=== PATIENT | male | born 1945 | race Caucasian/White ===

== ENCOUNTER 2016-07-17 11:14 | Day surgery (SDC) | payer OTHER, BC ==
[2016-07-13 16:59] VITALS: BMI 26.6
[~2016-07-17 11:14] MED LIST: ceFAZolin SODIUM 1 GM VIAL IVPB ONE
--- NOTE | 2016-07-17 12:27 | HP ---
History & Physical Update - History History: No Change - Physical Physical: No Change - Assessment Assessment: No Change - Plan Plan: No Change
[2016-07-17] MEDS ORDERED: ACETAMINOPHEN 1000 MG/100 ML VIAL (NON FORMULARY) IVPB ONE (12:35)
[2016-07-17] MEDS ORDERED: DEXTROSE 5%-0.45% SALINE 1,000 ML IV SCH (12:45)
[2016-07-17] MEDS ORDERED: LIDOCAINE HCL/PF 2% SDV 5ML VIAL ONE (13:14)
[2016-07-17] MEDS ORDERED: MIDAZOLAM HCL 2 MG/2 ML SINGLE DOSE VIAL ONE (13:14)
[2016-07-17] MEDS ORDERED: ceFAZolin SODIUM 1 GM VIAL ONE (13:14)
[2016-07-17] MEDS ORDERED: KETOROLAC TROMETHAMINE 30 MG/1 ML VIAL ONE (13:14)
[2016-07-17] MEDS ORDERED: DEXAMETHASONE SOD PHOSPHATE 4 MG/1 ML VIAL ONE (13:14)
[2016-07-17] MEDS ORDERED: SODIUM CHLORIDE 0.9% P/F 10 ML VIAL IJ ONE (13:14)
[2016-07-17] MEDS ORDERED: PROPOFOL 20 ML ONE ×2 (13:14)
[2016-07-17] MEDS ORDERED: ceFAZolin SODIUM 1 GM VIAL IVPB ONE (13:26)
[2016-07-17] MEDS ORDERED: ONDANSETRON 4 MG/2 ML VIAL IVPUSH PRN (13:47)
[2016-07-17] MEDS ORDERED: oxyCODONE HCL 5 MG TABLET PO PRN (13:47)
[2016-07-17] MEDS ORDERED: LACTATED RINGERS SOLUTION 1,000 ML IV SCH (14:00)
[2016-07-17 14:40] VITALS: TEMP 98
[2016-07-17] MEDS ORDERED: ACETAMINOPHEN INJECTION 100 ML IVPB ONE (14:56)
[2016-07-17 16:46] VITALS: BP 141/75; PULSE 80
--- NOTE | 2016-08-06 20:21 | OP ---
DATE OF OPERATION: 07/17/2016 PREOPERATIVE DIAGNOSIS: Left renal calculus. POSTOPERATIVE DIAGNOSIS: Left renal calculus. PROCEDURE: Left extracorporeal shock-wave lithotripsy. SURGEON: Aaron Dos Santos MD ANESTHESIA: Josue Becerra MD FINDINGS: Left renal calculus. PREOPERATIVE INDICATIONS: The patient is a 71-year-old male who has a 5-mm renal stone on CAT scan. He comes for ESWL. OPERATION: The patient was brought to the OR, placed on the table in the supine position, given general anesthesia and IV antibiotics. Time-out was performed. The stone was visualized on fluoroscopy in 3 planes. 2500 shocks were applied to the kidney stone. Patient tolerated procedure well. He was then woken up. AARON DOS SANTOS M.D. [id number]
== END 2016-07-17 16:46 | disposition home or self-care (01) ==
LOC: JASU-SURG 11:14
PROVIDERS: ATTEND Urology
PROC: 0TF4XZZ Fragmentation in Left Kidney Pelvis, External Approach (ICD-10-PCS; principal; 2016-07-17 12:45)
DX: N20.0 Calculus of kidney (principal)
CPT/HCPCS: 94760